=== PATIENT | male | born 1955 ===

== ENCOUNTER 2017-12-24 08:18 | Outpatient (CLI) | payer OTHER | END 2017-12-24 08:40 | disposition home or self-care (01) | LOC: OFIC 805 08:18 | DX: H61.23 Impacted cerumen, bilateral (principal); J32.8 Other chronic sinusitis; J34.2 Deviated nasal septum; J31.0 Chronic rhinitis; H69.83 Other specified disorders of Eustachian tube, bilateral ==

== ENCOUNTER 2018-01-21 07:57 | Outpatient (CLI) | payer OTHER ==
[~2018-01-21] VITALS: Ht 152.4 cm; Wt 97.1 kg
== END 2018-01-21 08:15 | disposition home or self-care (01) ==
LOC: OFIC 805 07:57
DX: J31.0 Chronic rhinitis (principal); J32.8 Other chronic sinusitis; J34.2 Deviated nasal septum

== ENCOUNTER 2018-02-25 07:09 | Outpatient (CLI) | payer OTHER ==
[~2018-02-25] VITALS: Ht 152.4 cm; Wt 97.1 kg
== END 2018-02-25 07:20 | disposition home or self-care (01) ==
LOC: OFIC 805 07:09
DX: J31.0 Chronic rhinitis (principal); J34.3 Hypertrophy of nasal turbinates; J32.8 Other chronic sinusitis; H69.83 Other specified disorders of Eustachian tube, bilateral; H60.593 Other noninfective acute otitis externa, bilateral